=== PATIENT | male | born 1995 | race Caucasian/White ===

== ENCOUNTER → 2022-07-26 | Day surgery (SDC) | payer BC ==
[~2022-07-26] MED LIST: Lidocaine 1% 4 ML ONE; Propofol 200 MG/20 ML SDV ONE
== END ==
LOC: JD.SDS 06:00
PROVIDERS: ATTEND Surgery
DX: K29.70 Gastritis, unspecified, without bleeding (principal); K63.5 Polyp of colon; E11.9 Type 2 diabetes mellitus without complications; E66.01 Morbid (severe) obesity due to excess calories; G47.33 Obstructive sleep apnea (adult) (pediatric); Z87.891 Personal history of nicotine dependence; Z98.890 Other specified postprocedural states; Z91.010 Allergy to peanuts; Z68.42 Body mass index [BMI] 45.0-49.9, adult
CPT/HCPCS: 43239; 45380; J2704

== ENCOUNTER 2022-09-10 03:40 | Emergency (ER) | payer BC | END 2022-09-10 06:42 | disposition home or self-care (01) | LOC: JD.ED 03:40 | DX: S93.401A Sprain of unspecified ligament of right ankle, initial encounter (principal); E11.9 Type 2 diabetes mellitus without complications; W19.XXXA Unspecified fall, initial encounter | CPT/HCPCS: 73610-26-RT; 73610-RT; 73620-26-RT; 73620-RT; 99283 ==

== ENCOUNTER 2025-05-11 16:13 | Emergency (ER) | payer OTHER, BC | END 2025-05-11 17:20 | disposition home or self-care (01) | LOC: EDBD → JD.ED 16:13 | DX: J68.9 Unspecified respiratory condition due to chemicals, gases, fumes and vapors (principal); E11.9 Type 2 diabetes mellitus without complications; Z57.2 Occupational exposure to dust | CPT/HCPCS: 99283 ==